=== PATIENT | female | born 1985 | race Caucasian/White ===

== ENCOUNTER → 2016-09-30 | Outpatient (CLI) | payer BC ==
[~2016-09-30] MED LIST: CHOL1000 PO; FEXO1TAB49 PO; FOLI1TAB7 PO; PRENTAB26 PO
[2016-09-30 18:19] LABS: URINE APPEARANCE CLEAR (CLEAR); URINE BILIRUBIN NEG (NEG); URINE COLOR YELLOW; URINE NITRITE NEG (NEG); URINE SPECIFIC GRAVITY 1.007 (1.000-1.030); UROBILINOGEN NEG (NEG)
[2016-09-30 18:21] LABS: MANUAL MICROSCOPIC REQUIRED? NO; REVIEW REQ? NO
== END | disposition home or self-care (01) ==
LOC: C.LABSPEC 17:27
PROVIDERS: ATTEND Obstetrics & Gynecology
DX: O09.299 Supervision of pregnancy with other poor reproductive or obstetric history, unspecified trimester (principal); Z3A.00 Weeks of gestation of pregnancy not specified

== ENCOUNTER → 2016-10-04 | Outpatient (CLI) | payer BC ==
[2016-10-04 16:46] LABS: BASO % 0.1 %; BASO ABS # 0.01 K/uL (0-0.2); COMPLETE YES; EOS % 2.6 %; IG% 0.2 %; LYMPH % 18.4 %; LYMPH ABS # 2.26 K/uL (1.2-3.4); MEAN CELL VOLUME 89.5 fL (80-100); MEAN CORPUSCULAR HEMOGLOBIN 30.9 pg (25-34); MEAN CORPUSCULAR HGB CONC 34.5 g/dl (32-36); MEAN PLATELET VOLUME 11.1 fL (7.4-10.4); MONO % 4.3 %; NEUT % 74.4 %; PLATELET COUNT 243 K/uL (130-400); RED BLOOD COUNT 4.47 M/uL (4.2-5.4); WHITE BLOOD COUNT 12.26 K/uL (4.8-10.8)
[2016-10-07 14:14] LABS: CHLAMYDIA TRACH RNA*** NOT DETECTED (NOT DETECTED); GC (NEIS GONORRHOEAE)RNA** NOT DETECTED (NOT DETECTED)
== END | disposition home or self-care (01) ==
LOC: C.LAB1850 15:43
PROVIDERS: ATTEND Obstetrics & Gynecology
DX: O09.299 Supervision of pregnancy with other poor reproductive or obstetric history, unspecified trimester (principal)

== ENCOUNTER 2016-11-14 20:08 | Emergency (ER) | payer BC, OTHER ==
[~2016-11-14] VITALS: Ht 154.9 cm; Wt 92.3 kg
[2016-11-14 20:34] VITALS: TEMP 37; Ht 154.9 cm; Wt 92.3 kg
[2016-11-14 22:52] LABS: BASO % 0.2 %; BASO ABS # 0.02 K/uL (0-0.2); COMPLETE YES; EOS % 2.8 %; IG% 0.3 %; LYMPH % 14.9 %; LYMPH ABS # 1.98 K/uL (1.2-3.4); MEAN CELL VOLUME 86.8 fL (80-100); MEAN CORPUSCULAR HEMOGLOBIN 30.6 pg (25-34); MEAN CORPUSCULAR HGB CONC 35.3 g/dl (32-36); MEAN PLATELET VOLUME 10.3 fL (7.4-10.4); MONO % 4.1 %; NEUT % 77.7 %; PLATELET COUNT 229 K/uL (130-400); RED BLOOD COUNT 4.38 M/uL (4.2-5.4); WHITE BLOOD COUNT 13.31 K/uL (4.8-10.8)
[2016-11-14 22:54] VITALS: O2SAT 96
[2016-11-14] MEDS ORDERED: PRENTAB26 PO (22:57)
[2016-11-14] MEDS ORDERED: FOLI1TAB7 PO (22:57)
[2016-11-14] MEDS ORDERED: CHOL1000 PO (22:57)
[2016-11-14] MEDS ORDERED: FEXO1TAB49 PO (22:57)
[2016-11-14 22:59] LABS: INR 0.9 (0.9-1.1); PARTIAL THROMBOPLASTIN RATIO 1.2
[2016-11-14 23:10] LABS: ALT/SGPT 18 U/L (12-78); AST/SGOT 8 U/L (15-37); BLOOD UREA NITROGEN 8 mg/dl (7-18); BUN/CREATININE RATIO 12.8 (10-20); CALCIUM 8.7 mg/dl (8.5-10.1); CARBON DIOXIDE 24 mmol/L (21-32); CHLORIDE 107 mmol/L (98-107); GLUCOSE 122 mg/dl (70-99); POTASSIUM 3.4 mmol/L (3.5-5.1); SODIUM 142 mmol/L (136-145)
[2016-11-14 23:21] LABS: ALKALINE PHOSPHATASE 48 U/L (45-117)
[2016-11-14 23:36] LABS: URINE APPEARANCE CLOUDY (CLEAR); URINE BILIRUBIN NEG (NEG); URINE COLOR DK YELLOW; URINE EPITHELIAL CELL AUTO >30 /lpf (0-5); URINE NITRITE NEG (NEG); URINE SPECIFIC GRAVITY 1.029 (1.000-1.030); UROBILINOGEN NEG (NEG)
[2016-11-14 23:50] LABS: MANUAL MICROSCOPIC REQUIRED? NO; REVIEW REQ? NO
[2016-11-15 01:38] VITALS: O2SAT 96
--- NOTE | 2016-11-15 01:56 | EMERGENCY ROOM VISIT NOTE ---
History Report prepared by Elliott: Lion Storey Under the Supervision of: Dr. Ramon Villalobos D.O. First contact with patient: 22:38 Chief Complaint: RESPIRATORY PROBLEMS Stated Complaint: SOB,COUGH,CHEST TIGHTNESS- 14WKS PREG- REFERRED Nursing Triage Summary: Patient is 14 weeks . Patient was evaluated at [facility] prior to coming to the ED. Patient states "I woke up this morning fine. I got to work and started feeling a sore throat. My throat has gotten worse throughout the day. Around lunch time, I developed a painful cough. When I cough it feels like I am being stabbed in the throat. I was wheezing earlier with difficulty breathing on and off. My chest has been intermittently tight." Patient had asmatic symptoms about 2 years ago and was given an inhaler; patient has not needed it since that time. History of Present Illness The patient is a 31 year old female who presents to the Emergency Room with complaints of worsening sore throat beginning this morning. She developed a cough this afternoon along with some wheezing, shortness of breath, and chest tightness. She went to [facility] earlier and was told that, because she is and had an elevated pulse rate, she is at risk for a PE. The patient is 14 weeks . She denies having any leg swelling. Source of History: patient Onset: this morning Position: throat Quality: other (sore throat) Timing: worsening Associated Symptoms: + SOB, + chest pain (tightness) Note: The patient denies having any leg swelling. Review of Systems See HPI for pertinent positives & negatives. A total of 10 systems reviewed and were otherwise negative. Past Medical & Surgical Medical Problems: (1) No Known Active Medical Problems Family History No pertinent family history stated. Social History Smoking Status: Former Smoker Current/Historical Medications Scheduled Cholecalciferol (Vitamin D3), 1 TAB PO DAILY Fexofenadine Hcl (Annie Allergy), 1 TAB PO DAILY Folic Acid (Folvite), 1 TAB PO DAILY Multivit/Min/Iron/Fol Ac/Pren ( Vitamin), 1 TAB PO DAILY Allergies Coded Allergies: No Known Allergies (Unverified , 11/14/16) Physical Exam Vital Signs Date Time Temp Pulse Resp B/P Pulse Ox O2 Delivery O2 Flow Rate FiO2 11/15/16 01:38 105 16 134/79 96 Room Air 11/15/16 00:23 102 18 116/76 97 Room Air 11/14/16 22:58 107 16 119/80 98 Room Air 11/14/16 22:54 96 Room Air 11/14/16 22:33 118 11/14/16 20:38 98 Room Air 11/14/16 20:34 37.0 113 20 131/86 97 Room Air Physical Exam CONSTITUTIONAL/VITAL SIGNS: Reviewed / noted above. GENERAL: Non-toxic in appearance. INTEGUMENTARY: Warm, dry, and [place]. HEAD: Normocephalic. EYES: without scleral icterus or trauma. ENT/OROPHARYNX: clear and moist. LYMPHADENOPATHY/NECK: Is supple without lymphadenopathy or meningismus. RESPIRATORY: Lungs clear and equal. CARDIOVASCULAR: Regular rate and rhythm. GI/ABDOMEN: Soft and nontender. No organomegaly or pulsatile mass. No rebound or guarding. Normal bowel sounds. EXTREMITIES: Warm and well perfused. BACK: No CVA tenderness. NEUROLOGICAL: Intact without focal deficits. PSYCHIATRIC: normal affect. MUSCULOSKELETAL: Normally developed with good muscle tone. Medical Decision & Procedures ER Provider Diagnostic Interpretation: Chest x-ray:per my interpretation is negative for acute disease. No pneumothorax or pneumonia. US VENOUS BILATERAL LOWER EXTREMITIES: No DVT. Radiologist: Adolph Juarez M.D. Laboratory Results 11/14/16 22:35 Red Blood Count 4.38, Mean Corpuscular Volume 86.8, Mean Corpuscular Hemoglobin 30.6, Mean Corpuscular Hemoglobin Concent 35.3, Mean Platelet Volume 10.3, Neutrophils (%) (Auto) 77.7, Lymphocytes (%) (Auto) 14.9, Monocytes (%) (Auto) 4.1, Eosinophils (%) (Auto) 2.8, Basophils (%) (Auto) 0.2, Neutrophils # (Auto) 10.35, Lymphocytes # (Auto) 1.98, Monocytes # (Auto) 0.55, Eosinophils # (Auto) 0.37, Basophils # (Auto) 0.02 11/14/16 22:35 Test 11/14/16 22:35 11/14/16 22:46 11/14/16 23:25 White Blood Count 13.31 K/uL (4.8-10.8) Red Blood Count 4.38 M/uL (4.2-5.4) Hemoglobin 13.4 g/dL (12.0-16.0) Hematocrit 38.0 % (37-47) Mean Corpuscular Volume 86.8 fL (80-100) Mean Corpuscular Hemoglobin 30.6 pg (25-34) Mean Corpuscular Hemoglobin Concent 35.3 g/dl (32-36) Platelet Count 229 K/uL (130-400) Mean Platelet Volume 10.3 fL (7.4-10.4) Neutrophils (%) (Auto) 77.7 % Lymphocytes (%) (Auto) 14.9 % Monocytes (%) (Auto) 4.1 % Eosinophils (%) (Auto) 2.8 % Basophils (%) (Auto) 0.2 % Neutrophils # (Auto) 10.35 K/uL (1.4-6.5) Lymphocytes # (Auto) 1.98 K/uL (1.2-3.4) Monocytes # (Auto) 0.55 K/uL (0.11-0.59) Eosinophils # (Auto) 0.37 K/uL (0-0.5) Basophils # (Auto) 0.02 K/uL (0-0.2) RDW Standard Deviation 42.0 fL (36.4-46.3) RDW Coefficient of Variation 13.1 % (11.5-14.5) Immature Granulocyte % (Auto) 0.3 % Immature Granulocyte # (Auto) 0.04 K/uL (0.00-0.02) Prothrombin Time 10.0 SECONDS (9.0-12.0) Prothromb Time International Ratio 0.9 (0.9-1.1) Activated Partial Thromboplast Time 30.3 SECONDS (21.0-31.0) Partial Thromboplastin Ratio 1.2 Anion Gap 11.0 mmol/L (3-11) Est Creatinine Clear Calc Drug Dose 138.1 ml/min Estimated GFR () 138.8 Estimated GFR (Non- 119.8 BUN/Creatinine Ratio 12.8 (10-20) Calcium Level 8.7 mg/dl (8.5-10.1) Total Bilirubin 0.3 mg/dl (0.2-1) Direct Bilirubin < 0.1 mg/dl (0-0.2) Aspartate Amino Transf (AST/SGOT) 8 U/L (15-37) Alanine Aminotransferase (ALT/SGPT) 18 U/L (12-78) Alkaline Phosphatase 48 U/L (45-117) Total Creatine Kinase 45 U/L (26-192) Creatine Kinase MB < 0.5 ng/ml (0.5-3.6) Creatine Kinase MB Ratio (0-3.0) Total Protein 6.9 gm/dl (6.4-8.2) Albumin 3.1 gm/dl (3.4-5.0) Lipase 91 U/L (73-393) Thyroid Stimulating Hormone (TSH) 2.620 uIu/ml (0.300-4.500) Bedside D-Dimer > 450 ng/mlFEU (0-450) Bedside Troponin I 0.000 ng/ml (0-0.045) Urine Color DK YELLOW Urine Appearance CLOUDY (CLEAR) Urine pH 6.0 (4.5-7.5) Urine Specific [place] 1.029 (1.000-1.030) Urine Protein NEG (NEG) Urine Glucose (UA) NEG (NEG) Urine Ketones NEG (NEG) Urine Occult Blood NEG (NEG) Urine Nitrite NEG (NEG) Urine Bilirubin NEG (NEG) Urine Urobilinogen NEG (NEG) Urine Leukocyte Esterase SMALL (NEG) Urine WBC (Auto) 10-30 /hpf (0-5) Urine RBC (Auto) 5-10 /hpf (0-4) Urine Hyaline Casts (Auto) 5-10 /lpf (0-5) Urine Epithelial Cells (Auto) >30 /lpf (0-5) Urine Bacteria (Auto) 1+ (NEG) Laboratory results as stated above per my review. ECG Indication: SOB/dyspnea Rate (beats per minute): 108 Rhythm: sinus tachycardia Findings: no acute ischemic change, no ectopy ED Course 2237: Previous medical records were reviewed. The patient was evaluated in room B2. A complete history and physical examination was performed. 0200: On reevaluation, the patient is doing well. I discussed the results and findings with the patient. She verbalized agreement of the treatment plan. The patient was discharged home. Medical Decision the differential was considered includes acute myocardial infarction, acute coronary syndrome, myocarditis, pericarditis, pericardial effusions /tamponad, esophageal perforation, thoracic aortic dissection, pulmonary embolism, pneumonia, pneumothorax, pancreatitis, shingles, acute cholecystitis, perforated abdominal viscus. This is a 30-year-old female who presents to the ED with a chief complaint of sore throat that started this morning. She also reports a slight cough that occasionally causes some stabbing in her throat. She states that she felt like she was wheezing and had some shortness of breath as well as a little chest tightness. She was seen at [facility] and because of a tachycardia, she was sent here for evaluation. They were concerned about PE. The patient is 14 weeks . She denies any swelling or pain in her legs. Her exam was otherwise unremarkable. Her throat did not reveal any significant abnormalities. 12-lead EKG shows a sinus tach at a rate of 108. White blood cell count was 13.3. D-dimer is 492. Troponin was negative. Urine did not show infection. There is contamination. A chest x-ray was negative for acute disease. Bilateral lower extremity ultrasounds were negative. The patient is unlikely to have a PE based on the above information. Her symptoms are most likely viral. She is felt to be stable for discharge. Impression Primary Impression: Viral URI Additional Impressions: First trimester Chest pain Cough Scribe Attestation The scribe's documentation has been prepared under my direction and personally reviewed by me in its entirety. I confirm that the note above accurately reflects all work, treatment, procedures, and medical decision making performed by me. Departure Information Dispostion Home / Self-Care Referrals No Doctor, Assigned (PCP) Patient Instructions My [facility], Sore Throats Self Care Additional Instructions Follow-up with your doctor for further care and evaluation in 1-2 days. Return to the emergency department for worsening or new symptoms or any concerns. You have been examined and treated today on an emergency basis only. This is not a substitute for, or an effort to provide, complete comprehensive medical care. It is impossible to recognize and treat all injuries or illnesses in a single emergency department visit. It is therefore important that you follow up closely with your doctor. Call as soon as possible for an appointment. Problem Qualifiers
[2016-11-15 02:19] VITALS: BP 140/89; PULSE 103
--- NOTE | 2016-11-15 06:31 | DIAGNOSTIC IMAGING REPORT ---
ULTRASOUND VENOUS DOPPLER LWR EXT BILA CLINICAL HISTORY: , chest pain, shortness of breath, leg swelling. COMPARISON STUDY: No previous studies for comparison. FINDINGS: Real-time and color flow Doppler imaging were performed. Flow was seen within the femoral, popliteal and calf veins with no intraluminal thrombus demonstrated. The saphenous vein is patent. IMPRESSION: No evidence of lower extremity DVT. Electronically signed by: Abundio Cheema M.D. 11/15/2016 6:29 AM Dictated Date/Time: 11/15/2016 6:29 AM
--- NOTE | 2016-11-15 06:41 | DIAGNOSTIC IMAGING REPORT ---
CHEST ONE VIEW PORTABLE CLINICAL HISTORY: Fever, sepsis COMPARISON STUDY: No previous studies for comparison. FINDINGS: The cardiac and mediastinal contours are normal. There is no evidence of focal pulmonary consolidation. There is no evidence of failure. No pleural effusions are visualized.[ IMPRESSION: No active disease in the chest. Electronically signed by: Abundio Cheema M.D. 11/15/2016 6:39 AM Dictated Date/Time: 11/15/2016 6:39 AM
== END 2016-11-15 02:21 | disposition home or self-care (01) ==
LOC: C.EDB 20:11
DX: O99.89 Other specified diseases and conditions complicating pregnancy, childbirth and the puerperium (principal); J06.9 Acute upper respiratory infection, unspecified; Z3A.14 14 weeks gestation of pregnancy; Z87.891 Personal history of nicotine dependence

== ENCOUNTER → 2016-12-02 | Outpatient (CLI) | payer OTHER ==
[2016-12-02 14:13] LABS: GTGD 50 Grams
== END | disposition home or self-care (01) ==
LOC: C.LAB1850 11:56
PROVIDERS: ATTEND Obstetrics & Gynecology
DX: Z34.02 Encounter for supervision of normal first pregnancy, second trimester (principal)

== ENCOUNTER → 2016-12-19 | Outpatient (CLI) | payer OTHER | END | disposition home or self-care (01) | LOC: C.LAB1850 07:03 | PROVIDERS: ATTEND Obstetrics & Gynecology | DX: O28.1 Abnormal biochemical finding on antenatal screening of mother (principal); Z3A.00 Weeks of gestation of pregnancy not specified ==

== ENCOUNTER → 2017-02-24 | Outpatient (CLI) | payer OTHER ==
[2017-02-24 18:22] LABS: URINE APPEARANCE TURBID (CLEAR); URINE BILIRUBIN NEG (NEG); URINE COLOR YELLOW; URINE EPITHELIAL CELL AUTO >30 /lpf (0-5); URINE NITRITE NEG (NEG); URINE PH 7.5 (4.5-7.5); URINE SPECIFIC GRAVITY 1.016 (1.000-1.030); UROBILINOGEN NEG (NEG)
[2017-02-24 18:23] LABS: MANUAL MICROSCOPIC REQUIRED? NO; REVIEW REQ? NO
== END | disposition home or self-care (01) ==
LOC: C.LABSPEC 17:31
PROVIDERS: ATTEND Obstetrics & Gynecology
DX: Z34.02 Encounter for supervision of normal first pregnancy, second trimester (principal)

== ENCOUNTER → 2017-03-08 | Outpatient (CLI) | payer OTHER ==
[2017-03-08 09:50] LABS: HEMATOCRIT 33.8 % (37-47)
== END | disposition home or self-care (01) ==
LOC: C.LAB1850 06:59
PROVIDERS: ATTEND Obstetrics & Gynecology
DX: O28.1 Abnormal biochemical finding on antenatal screening of mother (principal); Z3A.00 Weeks of gestation of pregnancy not specified

== ENCOUNTER 2017-04-22 12:41 | Inpatient (IN) | payer OTHER ==
[~2017-04-22] VITALS: Ht 154.9 cm; Wt 106.4 kg
[2017-04-22] MEDS ORDERED: LACTATED RINGER'S 1000ML 1,000 ML IV PRN (14:04)
[2017-04-22] MEDS ORDERED: ONDANSETRON INJ 2 MG/ML 2 ML VIAL IV PRN (14:15)
[2017-04-22] MEDS ORDERED: IBUPROFEN 200 MG TAB PO STA (14:32)
[2017-04-22] MEDS: LACTATED RINGER'S 1000ML 1,000 ML IV SCH (15:13)
[2017-04-22] MEDS: MISOPROSTOL 25 MCG TAB PV SCH ×2 (15:16→20:12)
[2017-04-22 15:21] LABS: HEMATOCRIT 36.4 % (37-47); MEAN CELL VOLUME 91.9 fL (80-100); MEAN CORPUSCULAR HEMOGLOBIN 31.3 pg (25-34); MEAN CORPUSCULAR HGB CONC 34.1 g/dl (32-36); MEAN PLATELET VOLUME 10.6 fL (7.4-10.4); PLATELET COUNT 217 K/uL (130-400); RED BLOOD COUNT 3.96 M/uL (4.2-5.4); WHITE BLOOD COUNT 11.18 K/uL (4.8-10.8)
[2017-04-22 18:28] VITALS: Ht 154.9 cm; Wt 106.4 kg
[2017-04-23] MEDS: MISOPROSTOL 25 MCG TAB PV SCH (00:23)
[2017-04-23 01:11] LABS: BUN/CREATININE RATIO 16.3 (10-20); CALCIUM 9.5 mg/dl (8.5-10.1); CREATININE 0.5 mg/dl (0.60-1.20); POTASSIUM 3.5 mmol/L (3.5-5.1)
[2017-04-23 01:14] LABS: ALB/GLOB RATIO 0.6 (0.9-2)
[2017-04-23] MEDS ORDERED: BUTORPHANOL TARTRATE 1 MG/ML VIAL ONE (06:33)
[2017-04-23] MEDS ORDERED: BUTORPHANOL TARTRATE 1 MG/ML VIAL IV PRN (06:45)
[2017-04-23] MEDS ORDERED: MISOPROSTOLTAB 50 MCG TAB ONE (07:45)
[2017-04-23] MEDS: MISOPROSTOLTAB 50 MCG TAB PV SCH (09:32)
[2017-04-23] MEDS ORDERED: NURSING VERBAL MED ORDER ONE ×2 (09:45→17:00)
[2017-04-23] MEDS ORDERED: BUPIVACAINE 0.25% 30 ML VIAL ONE ×3 (11:44→16:25)
[2017-04-23] MEDS ORDERED: FENTANYL 2MCG/ML ROPIV 1.25MG/ML 100ML BAG EPI ONE (11:45)
[2017-04-23] MEDS ORDERED: FENTANYL CITRATE INJ 50 MCG/1 ML 2 ML VIAL ONE (11:45)
[2017-04-23] MEDS ORDERED: EpHEDrine SULFATE INJ 50 MG/ML AMP ONE (11:45)
[2017-04-23] MEDS: LACTATED RINGER'S 1000ML 1,000 ML IV SCH (12:10)
[2017-04-23] MEDS ORDERED: NALOXONE HCL INJ 1 MG in SODIUM CHLORIDE 0.9% 1000ML 1,000 ML IV PRN (12:44)
[2017-04-23] MEDS ORDERED: LACTATED RINGER'S 1000ML 500 ML IV PRN ×2 (12:44→12:55)
[2017-04-23] MEDS ORDERED: FENTANYL 2MCG/ML ROPIV 1.25MG/ML 100ML BAG EPI PRN (12:45)
[2017-04-23] MEDS ORDERED: EpHEDrine SULFATE INJ 50 MG/ML AMP IV PRN (12:45)
[2017-04-23] MEDS ORDERED: ONDANSETRON INJ 2 MG/ML 2 ML VIAL IV PRN (12:45)
[2017-04-23] MEDS ORDERED: NALBUPHINE HCL INJ 10 MG/ML AMP IV PRN (12:45)
[2017-04-23] MEDS ORDERED: DiphenhydrAMINE HCL 50 MG/ML VIAL IV PRN (12:45)
[2017-04-23] MEDS ORDERED: NALOXONE HCL INJ 0.4 MG/1 ML VIAL/CARP IV PRN (12:45)
[2017-04-23] MEDS ORDERED: OXYTOCIN 30 UNITS/500ML NSS IV PRN ×2 (13:00→18:45)
[2017-04-23] MEDS ORDERED: LANOLIN OINT EXT PRN ×2 (18:45)
[2017-04-23] MEDS ORDERED: OXYCODONE/ACETAMINOPHEN 5-325 TAB PO PRN (18:45)
[2017-04-23] MEDS ORDERED: IBUPROFEN 600 MG TAB PO PRN (18:45)
[2017-04-23] MEDS ORDERED: SUPERCREAM 0.870 % 15GM JAR EXT PRN (18:45)
[2017-04-23] MEDS ORDERED: HYDROCORTISONE ACETATE 25 MG SUPP PR PRN (18:45)
[2017-04-23] MEDS ORDERED: BENZOCAINE 20% AER SPR 82.5 GM CAN EXT PRN (18:45)
[2017-04-23] MEDS: DOCUSATE SODIUM 100 MG CAP PO SCH (21:07)
[2017-04-23] MEDS: CEFAZOLIN IV 1,000 MG in DEXTROSE 5% 50ML 50 ML IV SCH (21:07)
--- NOTE | 2017-04-23 21:15 | DELIVERY SUMMARY ---
DATE OF OPERATION: 04/23/2017 PRE-DELIVERY Diagnoses: 1. A 31-year-old G2, P0-0-1-0 at 36 weeks 5 days. 2. Intrauterine demise. 3. Breech presentation. 4. History of miscarriage. POST-DELIVERY DIAGNOSES: Same. PROCEDURE: Spontaneous vaginal delivery of breech , nonviable. ANESTHESIA: Epidural. ESTIMATED BLOOD LOSS: 200 mL. FINDINGS: A nonviable approximately 36 weeks in gestation with relatively normal gross appearance of baby with some skin sloughing and edematous tissues indicating that demise had happened some time ago. No obvious abnormalities of baby. On examination of placenta, there was significant calcification of the cotyledons with appearance of velamentous insertion of cord with noted blood vessels coursing through membranes. At the time of placental delivery, the umbilical cord did separate from the placenta making this diagnosis a little more difficult; however, examination of the membranes after delivery did reveal blood vessels in the membranes. DESCRIPTION OF DELIVERY: The patient progressed to complete with epidural anesthesia. She then began to push when she felt the urge. She then vaginally delivered a breech from the deneen breech presentation. The buttocks delivered. The bilateral legs were swept medially and delivered. The baby was then wrapped in a blue towel and the torso was delivered. Each arm was swept medially and delivered. The baby was rewrapped in the towel. The head was flexed by placing the body in a downward direction and the head delivered spontaneously. The baby was placed on mother's abdomen per maternal request. The cord was doubly clamped and cut. The placenta was then delivered using a manual extraction because cord avulsed during active management of third stage of labor. After the delivery of the placenta, Pitocin was given. The uterus became firm. The uterus and vagina were swept of all clots and debris. The cervix, vagina and perineum were inspected and no laceration were noted. Sponge, and instrument counts were correct at the conclusion of the delivery. The mother tolerated the delivery well. I will plan to give 24 hours of Ancef due to manual extraction of placenta and the patient is still just undecided about further testing of the fetus. I attest to the content of the Intraoperative Record and any orders documented therein. Any exceptions are noted below. EMILIAD
--- NOTE | 2017-04-23 21:26 | Anesthesia Procedure Note ---
Anesthesia Epidural Removal Nt Date & Time Apr 23, 2017 at 21:26 Vital Signs Pain Intensity: 10.0 Notes Mental Status: alert / awake / arousable, participated in evaluation Nausea / Vomiting: adequately controlled Pain: adequately controlled Airway Patency, RR, SpO2: stable & adequate BP & HR: stable & adequate Hydration State: stable & adequate Neuraxial Anesthesia: was administered Anesthetic Complications: no major complications apparent, pt satisfied with anesthetic care Epidural: removed without complications, with tip intact
[2017-04-24] MEDS: MISOPROSTOLTAB 50 MCG TAB PV SCH ×2 (04:00)
[2017-04-24] MEDS: CEFAZOLIN IV 1,000 MG in DEXTROSE 5% 50ML 50 ML IV SCH ×2 (05:02→12:44)
[2017-04-24 07:06] LABS: HEMATOCRIT 31.2 % (37-47)
[2017-04-24] MEDS: DOCUSATE SODIUM 100 MG CAP PO SCH (08:00)
--- NOTE | 2017-04-24 08:17 | Progress Note ---
Subjective Apr 24, 2017. Subjective conversation w/ patient, physical exam Ambulation: ambulating normally Voiding: no voiding problems Passing Gas: Yes Diet Tolerance: Regular Diet Lochia: Moderate Pain: controlled Review of Systems Constitutional: No problem reported Respiratory: No problem reported Cardiac: No problem reported Breast: No problem reported Abdomen: No problem reported Female : No problem reported Objective Physical Exam General Appearance: WELL-APPEARING, other (tearful) Respiratory/Chest: no respiratory distress Cardiovascular: regular rate, rhythm Abdomen: non tender, soft Fundus: Firm Extremities: normal inspection Laboratory Results Last 24 Hours Test 04/24/17 06:41 Hemoglobin 10.5 g/dL Hematocrit 31.2 % Assessment and Plan Problem List Medical Problems: (1) Chest pain Status: Acute (2) Cough Status: Acute (3) First trimester Status: Acute (4) Viral URI Status: Acute Post- Day#: 1 Continue Routine Care: PPD#1 s/p breech delivery of nonviable IUFD at 36w. [facility] genetic testing ordered. Emotional support provided. Patient is to follow up in the office in 2 weeks. Discharge instructions discussed.
--- NOTE | 2017-04-24 08:19 | Discharge Instructions ---
Discharge Instructions Date of Service Apr 24, 2017. Admission Reason for Admission: Demise Discharge Discharge Diagnosis / Problem: s/p vaginal delivery Discharge Goals Goal(s): Therapeutic intervention Activity Recommendations Activity Limitations: per Instructions/Follow-up section . Instructions / Follow-Up Instructions / Follow-Up . ACTIVITY RECOMMENDATIONS: * Vaginal rest (no tampons, douching, intercourse) until after doctor 's visit. * control as discussed with doctor. * Wear a bra for 24 hours/day for comfort. SPECIAL CARE INSTRUCTIONS: Medications: * vitamins, one tablet daily. Continue taking until prescription is complete. Call you doctor if: * Temperature greater than or equal to 100.4 degrees F or 38.0 degrees C. * Bleeding becomes heavier than the heaviest part of your period - saturating a sanitary pad within an hour. * Passing large clots. * Unrelieved pain. * Bleeding has a foul smelling odor. * Signs and symptoms of phlebitis: leg pain, warm, red or swollen area on leg. FOLLOW UP VISIT: If appointment is not already scheduled: Please call doctor's office to schedule a follow-up appointment in 2 weeks. Current Hospital Diet Patient's current hospital diet: Regular OB Diet Discahrge Diet Recommended Diet: Regular Diet Pending Studies Studies pending at discharge: yes List of pending studies: genetic testing of baby Medical Emergencies . Who to Call and When: Medical Emergencies: If at any time you feel your situation is an emergency, please call 911 immediately. . Non-Emergent Contact Non-Emergency issues call your: Primary Care Provider, Planning Supervisor . . "Provider Documentation" section prepared by Vane Valiente. . VTE Core Measure Inpt VTE Proph given/why not?: Treatment not indicated
[2017-04-24] MEDS ORDERED: BISACODYL 5 MG TABEC PO SCH (20:00)
== END 2017-04-24 14:45 | disposition home or self-care (01) | DRG 775 ==
LOC: C.LD 13:58
PROVIDERS: ADMIT Obstetrics & Gynecology; ATTEND Obstetrics & Gynecology
PROC: 10E0XZZ Delivery of Products of Conception, External Approach (ICD-10-PCS; principal; 2017-04-23)
DX: O36.4XX0 Maternal care for intrauterine death, not applicable or unspecified (principal); O32.1XX0 Maternal care for breech presentation, not applicable or unspecified; Z3A.36 36 weeks gestation of pregnancy; Z37.1 Single stillbirth

== ENCOUNTER → 2017-10-13 | Outpatient (CLI) | payer OTHER ==
[~2017-10-13] MED LIST changes: -FOLI1TAB7 PO; +FOLI1TAB8 PO
== END | disposition home or self-care (01) ==
LOC: C.LABSPEC 15:47
PROVIDERS: ATTEND Obstetrics & Gynecology
DX: O09.291 Supervision of pregnancy with other poor reproductive or obstetric history, first trimester (principal)

== ENCOUNTER → 2017-10-13 | Outpatient (CLI) | payer OTHER ==
[2017-10-13 15:36] LABS: BASO % 0.2 %; BASO ABS # 0.02 K/uL (0-0.2); EOS % 3.1 %; EOS ABS # 0.35 K/uL (0-0.5); HEMATOCRIT 41.4 % (37-47); HEMOGLOBIN 14.6 g/dL (12.0-16.0); IG# 0.02 K/uL (0.00-0.02); LYMPH % 19.4 %; LYMPH ABS # 2.16 K/uL (1.2-3.4); MEAN CELL VOLUME 89.8 fL (80-100); MEAN CORPUSCULAR HEMOGLOBIN 31.7 pg (25-34); MEAN CORPUSCULAR HGB CONC 35.3 g/dl (32-36); MEAN PLATELET VOLUME 10.7 fL (7.4-10.4); MONO % 5.7 %; MONO ABS # 0.64 K/uL (0.11-0.59); NEUT % 71.4 %; NEUT ABS # 7.96 K/uL (1.4-6.5); PLATELET COUNT 235 K/uL (130-400); RED CELL DISTRIBUTION WIDTH CV 13.7 % (11.5-14.5); RED CELL DISTRIBUTION WIDTH SD 45.4 fL (36.4-46.3); WHITE BLOOD COUNT 11.15 K/uL (4.8-10.8)
== END | disposition home or self-care (01) ==
LOC: C.LAB1850 14:52
PROVIDERS: ATTEND Obstetrics & Gynecology
DX: O09.291 Supervision of pregnancy with other poor reproductive or obstetric history, first trimester (principal)

== ENCOUNTER → 2017-10-13 | Outpatient (CLI) | payer OTHER | END | disposition home or self-care (01) | LOC: C.PAPS 18:04 | PROVIDERS: ATTEND Obstetrics & Gynecology | DX: O09.291 Supervision of pregnancy with other poor reproductive or obstetric history, first trimester (principal) ==

== ENCOUNTER → 2017-12-08 | Outpatient (CLI) | payer OTHER | END | disposition home or self-care (01) | LOC: C.LAB1850 12:12 | PROVIDERS: ATTEND Obstetrics & Gynecology | DX: O02.1 Missed abortion (principal); Z3A.00 Weeks of gestation of pregnancy not specified ==

== ENCOUNTER → 2017-12-15 | Outpatient (CLI) | payer OTHER | END | disposition home or self-care (01) | LOC: C.LAB1850 14:56 | PROVIDERS: ATTEND Obstetrics & Gynecology | DX: O02.1 Missed abortion (principal) ==

== ENCOUNTER → 2017-12-26 | Outpatient (CLI) | payer OTHER | END | disposition home or self-care (01) | LOC: C.LABSPEC 13:12 | PROVIDERS: ATTEND Obstetrics & Gynecology | DX: O02.1 Missed abortion (principal) ==

== ENCOUNTER → 2018-01-01 | Outpatient (CLI) | payer OTHER | END | disposition home or self-care (01) | LOC: C.LABSPEC 13:37 | PROVIDERS: ATTEND Obstetrics & Gynecology | DX: O02.1 Missed abortion (principal) ==